=== PATIENT | male | born 1970 | race Caucasian/White ===

== ENCOUNTER 2020-11-09 17:36 | Inpatient (IN) | payer BC, OTHER ==
[~2020-11-09] VITALS: Ht 182.9 cm; Wt 116.0 kg
[2020-11-09 20:00] VITALS: BP 130/81
--- OUTSIDE RECORDS SUMMARY | 2020-11-09 20:23 | CCD ---
Author Author [facility] Organization [facility] Address Unknown Phone Unavailable Care Team Providers Care Fire Alarm Repairer Name Role Phone Amari, M Eliana PA-C Unavailable Unavailable Amari, M Eliana PA-C Unavailable Unavailable Amari, M Eliana PA-C Unavailable Unavailable Amari, M Eliana PA-C Unavailable Unavailable Amari, M Eliana PA-C Unavailable Unavailable Amari, M Eliana PA-C Unavailable Unavailable Amari, M Eliana PA-C Unavailable Unavailable Amari, M Eliana PA-C Unavailable Unavailable Amari, M Eliana PA-C Unavailable Unavailable Amari, M Eliana PA-C Unavailable Unavailable Amari, M Eliana PA-C Unavailable Unavailable Amari, M Eliana PA-C Unavailable Unavailable Amari, M Eliana PA-C Unavailable Unavailable Amari, M Eliana PA-C Unavailable Unavailable Amari, M Eliana PA-C Unavailable Unavailable Amari, M Eliana PA-C Unavailable Unavailable Amari, M Eliana PA-C Unavailable Unavailable Amari, M Eliana PA-C Unavailable Unavailable Amari, M Eliana PA-C Unavailable Unavailable Amari, M Eliana PA-C Unavailable Unavailable Amari, M Eliana PA-C Unavailable Unavailable Amari, M Eliana PA-C Unavailable Unavailable Amari, M Eliana PA-C Unavailable Unavailable Niles SANTANA PA Unavailable Unavailable Niles SANTANA PA Unavailable Unavailable Niles SANTANA PA Unavailable Unavailable Niles SANTANA PA Unavailable Unavailable Niles SANTANA PA Unavailable Unavailable Niles SANTANA PA Unavailable Unavailable Niles SANTANA PA Unavailable Unavailable ESTHER, L USMAN PA Unavailable Unavailable ESTHER, L USMAN PA Unavailable Unavailable ESTHER, L USMAN PA Unavailable Unavailable ESTHER, L USMAN PA Unavailable Unavailable ESTHER, L USMAN PA Unavailable Unavailable ESTHER, L USMAN PA Unavailable Unavailable ESTHER, L USMAN PA Unavailable Unavailable ESTHER, L USMAN PA Unavailable Unavailable ESTHER, L USMAN PA Unavailable Unavailable ESTHER, L USMAN PA Unavailable Unavailable ESTHER, L USMAN PA Unavailable Unavailable ESTHER, L USMAN PA Unavailable Unavailable MURALI, @ BRENDA CHRISTOPHER Unavailable Unavailable Jaylen CARRION MD Unavailable Unavailable Jaylen CARRION MD Unavailable Unavailable Jaylen CARRION MD Unavailable Unavailable Jaylen CARRION MD Unavailable Unavailable Jaylen CARRION MD Unavailable Unavailable Jaylen CARRION MD Unavailable Unavailable Jaylen CARRION MD Unavailable Unavailable Jaylen CARRION MD Unavailable Unavailable Jaylen CARRION MD Unavailable Unavailable Jaylen CARRION MD Unavailable Unavailable Jaylen CARRION MD Unavailable Unavailable Jaylen CARRION MD Unavailable Unavailable Jaylen CARRION MD Unavailable Unavailable Jaylen CARRION MD Unavailable Unavailable Jaylen CARRION MD Unavailable Unavailable Jaylen CARRION MD Unavailable Unavailable Jaylen CARRION MD Unavailable Unavailable Jaylen CARRION MD Unavailable Unavailable Jaylen CARRION MD Unavailable Unavailable Jaylen CARRION MD Unavailable Unavailable Jaylen CARRION MD Unavailable Unavailable TINA, SAGE DENISHA PA Unavailable Unavailable TINA, SAGE DENISHA PA Unavailable Unavailable TINA, SAGE DENISHA PA Unavailable Unavailable TINA, SAGE DENISHA PA Unavailable Unavailable TINA, SAGE DENISHA PA Unavailable Unavailable TINA, SAGE DENISHA PA Unavailable Unavailable TINA, SAGE DENISHA PA Unavailable Unavailable TINA, SAGE DENISHA PA Unavailable Unavailable TINA, SAGE DENISHA PA Unavailable Unavailable TINA, SAGE DENISHA PA Unavailable Unavailable TINA, SAGE DENISHA PA Unavailable Unavailable TINA, SAGE DENISHA PA Unavailable Unavailable TINA, SAGE DENISHA PA Unavailable Unavailable TINA, SAGE DENISHA PA Unavailable Unavailable TINA, SAGE DENISHA PA Unavailable Unavailable TINA, SAGE DENISHA PA Unavailable Unavailable TINA, SAGE DENISHA PA Unavailable Unavailable TINA, SAGE DENISHA PA Unavailable Unavailable TINA, SAGE DENISHA PA Unavailable Unavailable SAGE WILDER Unavailable Unavailable SAGE WILDER Unavailable Unavailable Re-disclosure Warning The records that you are about to access may contain information from federally-assisted alcohol or drug abuse programs. If such information is present, then the following federally mandated warning applies: This information has been disclosed to you from records protected by federal confidentiality rules (42 CFR part 2). The federal rules prohibit you from making any further disclosure of this information unless further disclosure is expressly permitted by the written consent of the person to whom it pertains or as otherwise permitted by 42 CFR part 2. A general authorization for the release of medical or other information is NOT sufficient for this purpose. The Federal rules restrict any use of the information to criminally investigate or prosecute any alcohol or drug abuse patient.The records that you are about to access may contain highly sensitive health information, the redisclosure of which is protected by Article 27-F of the [facility] Public Health law. If you continue you may have access to information: Regarding HIV / AIDS; Provided by facilities licensed or operated by the [facility] Office of Mental Health; or Provided by the [facility] Office for People With Developmental Disabilities. If such information is present, then the following [facility] mandated warning applies: This information has been disclosed to you from confidential records which are protected by state law. State law prohibits you from making any further disclosure of this information without the specific written consent of the person to whom it pertains, or as otherwise permitted by law. Any unauthorized further disclosure in violation of state law may result in a fine or fci sentence or both. A general authorization for the release of medical or other information is NOT sufficient authorization for further disc losure. Encounters Encounter Providers Location Date Indications Data Source(s ) Emergency Attender: USMAN LOPES EMERGENCY ROOM-EMERG ENCY ROOM 11/09/2020 01:17:00 PM EST - 11/09/2020 01:17:00 PM EST [facility] Outpatient Attender: ZAKIYA CARRION MD 12/15/2019 01:0 0:00 PM [facility] Outpatient Attender: ZAKIYA CARRION 12/10/2019 03:09:0 0 PM [facility] C ENTER 12/09/2019 12:00:00 AM EDT eCW1 ([facility]) Outpatient Attender: Eliana Fitzpatrick PA-C EMERGENCY ROOM-LA B 12/04/2019 08:08:00 AM EST - 12/04/2019 08:08:00 AM [facility] Outpatient Attender: Eliana Fitzpatrick PA-C 12/04/2019 07:03 :00 AM [facility] ENTER 12/04/2019 12:00:00 AM EST eCW1 ([facility]) Emergency Attender: DENISHA LOPES EMERGENCY ROOM-ER 03/30/2019 08:53:00 AM EDT - 03/30/2019 10:54:00 AM EDT [facility] Medications Medication Brand Name Start Date Product Form Dose Route Admi nistrative Instructions Pharmacy Instructions Status Indications Reaction Description Data Source(s) 875-125 mg 12/16/2019 12:00:00 AM EDT tablet 20 TAKE 1 TABLET BY MOUTH EVERY 12 HOURS TAKE 1 TABLET BY MOUTH EVERY 12 HOURS SOLD: 12/16/2019 [facility] Insurance Providers Payer name Policy type / Coverage type Policy ID Covered republican ID Covered republican's relationship to castro Policy [place] Plan Information [employer] PPO 302/307 [id number] SP [id number] UNITED HEALTHCARE [id number] SP [id number] SELF PAY ONLY [id number] SP [id number] STATE INSURANCE FUND [id number] SP [id number] UNITED HEALTHCARE [id number] S [id number] BCBS EMPIRE [id number] S [id number] UNITED HEALTHCARE [id number] S [id number] BCBS EMPIRE [id number] S [id number] UNITED HEALTHCARE [id number] S [id number] BCBS EMPIRE [id number] S [id number] UNITED HEALTHCARE [id number] S [id number] BCBS EMPIRE [id number] S [id number] BCBS EMPIRE ELINA DIV [id number] SP [id number] Problems, Conditions, and Diagnoses Code Display Name Description Problem Type Effective Dates Data Source(s) R22.2 Localized swelling, mass and lump, trunk LOCALIZED SWELLING, MASS AND LUMP, TRUNK Diagnosis [facility]92 Pilonidal sinus without abscess PILONIDAL SINUS WITHOUT ABSCESS Diagnosis 12/10/2019 03:09:00 PM [facility] Z13.220 Encounter for screening for lipoid disor ders ENCOUNTER FOR SCREENING FOR LIPOID DISOR Diagnosis 12/04/2019 08:08[facility] M53.3 Sacrococcygeal disorders, not elsewhere classified SACROCOCCYGEAL DISORDERS, NOT ELSEWHERE Diagnosis 12/04/2019 08:08:00 AM [facility] Z13.29 Encounter for screening for other suspec marycruz endocrine disorder ENCOUNTER FOR SCREENING FOR OTH SUSPECTED ENDOCRINE DISORDER Diagnosis 02/2020 08:08:00 AM [facility] Z71.6 Tobacco abuse counseling TOBACCO ABUSE COUNSELING Diag nosis 12/04/2019 07:03:00 AM [facility] Z72.0 Tobacco use TOBACCO USE Diagnosis 12/04/2019 07:03:00 AM [facility] Z28.21 Immunization not carried out because of patient refusal IMMUNIZATION NOT CARRIED OUT BECAUSE OF PATIENT RE Diagnosis 12/04/2019 07:03:00 AM [facility] Z76.89 Persons encountering health services in other specified circumstances PERSONS ENCOUNTERING HEALTH SERVICES IN OTH CIRCUMSTANCES Diagnosis 12/04/2019 07:03:00 AM [facility] Results ID Date Data Source [id number] 11/09/2020 04:41:00 [facility] TSYS[facility] [id number] Name Value Range Interpretation Code Description Data Corinne rce(s) Supporting Document(s) COVID-19 NEGATIVE NEGATIVE [facility] Negative results should be treated as pr esumptive and, ifinconsistent with clinical signs and symptoms or necessaryfor patient management, should be tested with differentauthorized or cleared molecular tests.Negative results do not preclude SARS-CoV-2 infection andshould not be used as the sole basis for patient managementdecisions.This is a rapid molecular in vitro diagnostic test utilizingan isothermal nucleic acid amplification technology intendedfor the qualitative detection of nucleic acid from the SARS-CoV-2 viral RNA in direct nasal, nasopharyngeal orthroat swabs from individuals who are suspected of COVID-19.Results are for the indentification of SARS-CoV-2 RNA. [id number] RNA is generally detectable in respiratorysamples during the actue phase of infection. ID Date Data Source [id number] 11/09/2020 03:38:00 PM EST [facility] DATE OF EXAMINATION: 11/09/2020 13:16 EST ABD/PEL WITH IV CONTRAST HISTORY: Abdominal pain. Left lower quadrant pain. TECHNIQUE: This CT exam was performed using the following dose reduction techniques:automated exposure control, adjustment of mA and/or kV according to thepatient's size, and use of iterative reconstruction technique. Standard contiguous axial spiral imaging was obtained from the dome of thediaphragms through the symphysis pubis without oral contrast and withintravenous contrast administration and with coronal reformatting. FINDINGS: Lower thorax: Unremarkable ABDOMEN: Liver: Moderate fatty infiltrationGallbladder and bile ducts: UnremarkablePancreas: UnremarkableSpleen: UnremarkableAdrenals: UnremarkableKidneys and ureters: 9.5 cm of hepatic cyst in the inferior pole of left kidneyStomach and bowel: Extensive focal inflammatory changes of mid to distaldescending colon consistent with colitis or diverticulitis. I do encouragecolonoscopy once the patient's current presentation subsidesAppendix: Normal PELVIS: Bladder: Partially opacified, grossly unremarkableReproductive: Unremarkable No free fluid or free air IMPRESSION: Moderate to severe focal inflammatory change involving the mid to distaldescending colon most consistent with acute diverticulitis with a smallloculated posterior microperforation. Colitis is less likely as is neoplasm.However, I do still encouraged colonoscopy once the patient's currentpresentation subsides. 9.5 cm exophytic cyst inferior pole of left kidney. Electronically signed in [id number] by: Terrie Pierre M.D. 11/09/2020 15:32 EST Name Value Range Interpretation Code Description Data Corinne rce(s) Supporting Document(s) ID Date Data Source [id number] 11/09/2020 01:37:00 PM EST [facility] TSYSORDER [id number] Name Value Range Interpretation Code Description Data Corinne rce(s) Supporting Document(s) LIPASE 157 U/L 73-393 [facility] ID Date Data Source [id number] 11/09/2020 01:37:00 PM EST [facility] TSYSORDER [id number] Name Value Range Interpretation Code Description Data Corinne rce(s) Supporting Document(s) GLUCOSE 104 mg/dL 74-106 [facility] BLOOD UREA NITROGEN 18 mg/dL 7-18 [facility] ital CREATININE 1.01 mg/dL 0.7-1.3 [facility] SODIUM 139 mmol/L 136-145 [facility] POTASSIUM 4.3 mmol/L 3.5-5.1 [facility] CHLORIDE 103 mmol/L 98-107 [facility] CO2 29 mmol/L 21-32 [facility] CALCIUM 9.6 mg/dL 8.5-10.1 [facility] ANION GAP 7.0 mmol/L 5-12 [facility] GLOMERULAR FILTRATION RATE 79 mL/min [facility] GFR IS CALCULATED IN mL/min/1.73m2 CRYSTAL L FUNCTION: >90MILDLY DECREASED: 60-89MILDY TO MODERATELY DECREASED: 45-59 MODERATELY TO SEVERELY DECREASED: 30-44SEVERELY DECREASED: 15-29RENAL FAILURE: <15 AST 18 U/L 15-37 [facility] ALT 46 U/L 12-78 [facility] ALKALINE PHOSPHATASE 61 U/L 46-116 [facility] pital TOTAL BILIRUBIN 0.4 mg/dL 0.2-1.0 [facility] TOTAL PROTEIN 7.8 g/dl 6.4-8.2 [facility] ALBUMIN 3.9 gm/dL 3.4-5.0 [facility] ID Date Data Source [id number] 11/09/2020 01:37:00 PM [facility] TSYSORDER [id number] Name Value Range Interpretation Code Description Data Corinne rce(s) Supporting Document(s) PARTIAL THROMBOPLASTIN TIME 27.3 SECONDS 21.2-27.3 [facility] ID Date Data Source [id number] 11/09/2020 01:37:00 PM [facility] l TSYSORDER [id number] Name Value Range Interpretation Code Description Data Corinne rce(s) Supporting Document(s) MAGNESIUM 2.1 mg/dL 1.8-2.4 [facility] ID Date Data Source [id number] 11/09/2020 01:37:00 PM [facility] l TSYSORDER [id number] Name Value Range Interpretation Code Description Data Corinne rce(s) Supporting Document(s) PROTHROMBIN TIME (PATIENT) 10.0 SECONDS 9.1-11.6 [facility] INR 0.96 0.87-1.06 [facility] ID Date Data Source [id number] 11/09/2020 01:19:00 PM EST [facility] TSYSORDER [id number] Name Value Range Interpretation Code Description Data Corinne rce(s) Supporting Document(s) WHITE BLOOD COUNT 11.2 K/mm3 4.0-10.0 [facility] RED [facility]LOOD COUNT 5.38 M/mm3 4.50-6.00 [facility] l HEMOGLOBIN 16.2 gm/dL 14.0-18.0 [facility] HEMATOCRIT 47.0 % 42.0-54.0 [facility] MEAN CELL VOLUME 87.4 fl 80-96 [facility] MEAN CORPUSCULAR HEMOGLOBIN 30.1 pg 27.0-31.0 [facility] MEAN CORPUSCULAR HGB CONC 34.5 g/dl 32.0-36.0 [facility] RED CELL DISTRIBUTION WIDTH 11.3 % 10.0-14.5 [facility] PLATELET COUNT 189 K/mm3 172-450 [facility] MEAN PLATELET VOLUME 10.4 fl 9.0-13.0 [facility] pital GRAN % 74.6 % 50-80.0 [facility] IG% 0.1 % 0.0-0.2 [facility] LYMPH % 15.2 % 25.0-50.0 L [facility] MONO % 7.8 % 2.0-10.0 [facility] EOS % 2.0 % 0-5.0 [facility] BASO % 0.3 % 0.0-2.0 [facility] GRAN # 8.4 K/mm3 2.0-8.00 H [facility] IG# 0.0 K/mm3 0.0-0.2 [facility] LYMPH # 1.7 K/mm3 1.0-5.0 [facility] MONO # 0.9 K/mm3 0.10-1.20 [facility] EOS # 0.2 K/mm3 0.0-0.5 [facility] BASO # 0.0 K/mm3 0.0-0.2 [facility] ID Date Data Source [id number] 11/09/2020 01:12:00 PM [facility] TSYSORDER [id number] Name Value Range Interpretation Code Description Data Corinne rce(s) Supporting Document(s) URINE COLOR. [facility] URINE APPEARANCE CLEAR [facility] l URINE GLUCOSE (UA) NEGATIVE mg/dL NEGATIVE [facility] URINE BILIRUBIN NEGATIVE NEGATIVE [facility] URINE KETONE NEGATIVE mg/dL [facility]IVE [facility]CIFIC GRAV[facility],URINE >= 1.030 1.001-1.035 [facility] URINE BLOOD NEGATIVE NEGATIVE [facility] PH,URINE 5.0 5.0-9.0 [facility] URINE PROTEIN NEGATIVE mg/dL NEGATIVE [facility] UROBILINOGEN NORMAL(0.2-1) mg/dL 0-1 [facility] URINE NITRATE NEGATIVE NEGATIVE [facility] URINE LEUKOCYTE ESTERASE NEGATIVE NEGATIVE [facility] ID Date Data Source [id number] 12/15/2019 01:33:00 PM EDT [facility] DATE OF EXAMINATION: 12/15/2019 12:53 EDT EXTREMITY LIMITED HISTORY: Bilateral cysts ULTRASOUND lower back Real-time ultrasound imaging was performed utilizing B-mode/lund scale and colorDoppler imaging where applicable. FINDINGS: There is an ill-defined hypoechoic area measuring roughly 1 x 0.5 cm which maybe secondary to cellulitis. There is no definite fluid collection. IMPRESSION: Findings suggestive of focal cellulitis. Electronically signed in [id number] by: Terrie Pierre M.D. 12/15/2019 13:28 EDT Name Value Range Interpretation Code Description Data [facility] Supporting Document(s) ID Date Data Source [id number] 12/04/2019 09:07:00 AM EST [facility] DATE OF EXAMINATION: 12/04/2019 8:32 EST T ECHNIQUE: 3 views of the sacrum coccyx were obtained. HISTORY: Pain There is normal alignment and position of the bones of the sacrum and coccyx. Noevidence for fracture or any other abnormalities can be noted. IMPRESSION: Unremarkable sacrum and coccyx exam. Electronically signed in [id number] by: Terrie Pierre M.D. 12/04/2019 9:01 EST Name Value Range Interpretation Code Description Data [facility] rce(s) Supporting Document(s) ID Date Data Source [id number] 12/04/2019 10:02:00 AM EST [facility] Name Value Range Interpretation Code Description Data [facility] rce(s) Supporting Document(s) ESTIMATED AVERAGE GLUCOSE 102.5 mg/dL [facility] ID Date Data Source [id number] 12/04/2019 10:02:00 AM EST [facility] Name Value Range Interpretation Code Description Data Corinne rce(s) Supporting Document(s) HGBA1C 5.2 % 4.5-6.2 [facility] ID Date Data Source [id number] 12/04/2019 09:08:00 AM [facility] Name Value Range Interpretation Code Description Data Corinne rce(s) Supporting Document(s) FREE T4 1.00 ng/dL 0.76-1.46 [facility] ID Date Data Source [id number] 12/04/2019 09:08:00 AM EST [facility] Name Value Range Interpretation Code Description Data Corinne rce(s) Supporting Document(s) TSH 1.10 uIU/mL 0.36-3.74 [facility] ID Date Data Source [id number] 12/04/2019 09:05:00 AM [facility] Name Value Range Interpretation Code Description Data Corinne rce(s) Supporting Document(s) GLUCOSE 87 mg/dL 74-106 [facility] BLOOD UREA NITROGEN 14 mg/dL 7-18 [facility] ital CREATININE 0.9 mg/dL 0.7-1.3 [facility] SODIUM 146 mmol/L 136-145 H [facility] POTASSIUM 4.4 mmol/L 3.5-5.1 [facility] CHLORIDE 107 mmol/L 98-107 [facility] CO2 24 mmol/L 21-32 [facility] CALCIUM 9.0 mg/dL 8.5-10.1 [facility] ANION GAP 15.0 mmol/L 5-12 H [facility] GLOMERULAR FILTRATION RATE 90 mL/min [facility] GFR IS CALCULATED IN mL/min/1.73m2 CRYSTAL L FUNCTION: >90MILDLY DECREASED: 60-89MILDY TO MODERATELY DECREASED: 45-59 MODERATELY TO SEVERELY DECREASED: 30-44SEVERELY DECREASED: 15-29RENAL FAILURE: <15 AST 17 U/L 15-37 [facility] ALT 40 U/L 12-78 [facility] ALKALINE PHOSPHATASE 61 U/L 46-116 [facility] pital TOTAL BILIRUBIN 0.2 mg/dL 0.2-1.0 [facility] TOTAL PROTEIN 7.3 g/dl 6.4-8.2 [facility] ALBUMIN 4.4 gm/dL 3.4-5.0 [facility] ID Date Data Source [id number] 12/04/2019 09:05:00 AM EST [facility] Name Value Range Interpretation Code Description Data Corinne rce(s) Supporting Document(s) CHOLESTEROL 155 mg/dL 0-200 [facility] TRIGLYCERIDES 222 mg/dL 0-150 H [facility] LDL CHOLESTEROL 73 mg/dL 0-100 [facility] HDL CHOLESTEROL 38 mg/dL 40-60 L [facility] CHOL/HDL RATIO 4.1 0.0-5.0 [facility] ID Date Data Source [id number] 12/04/2019 08:47:00 AM [facility] l Name Value Range Interpretation Code Description Data Corinne rce(s) Supporting Document(s) WHITE BLOOD COUNT 5.6 K/mm3 4.0-10.0 [facility] al RED BLOOD COUNT 5.00 M/mm3 4.50-6.00 [facility] HEMOGLOBIN 15.6 gm/dL 14.0-18.0 [facility] HEMATOCRIT 45.3 % 42.0-54.0 [facility] MEAN CELL VOLUME 90.6 fl 80-96 [facility] MEAN CORPUSCULAR HEMOGLOBIN 31.2 pg 27.0-31.0 H [facility] MEAN CORPUSCULAR HGB CONC 34.4 g/dl 32.0-36.0 [facility] RED CELL DISTRIBUTION WIDTH 11.5 % 10.0-14.5 [facility] PLATELET COUNT 183 K/mm3 172-450 [facility] Procedure Vital Signs ID Date Data Source UNK Name Value Range Interpretation Code Description Data Source(s) Deprecated Oxygen saturation in Capillary blood by Oximetry 98 % 98 % eCW1 ([facility]) Respiratory rate 18 /min 18 /min eCW1 ([facility]) Heart rate 92 /min 92 /min eCW1 ([facility]) Body temperature 98.5 [degF] 98.5 [degF] eCW1 ( [facility]) Body weight Measured 226.2 [lb_av] 226.2 [lb_av ] eCW1 ([facility])
[2020-11-09] MEDS ORDERED: KETOROLAC 30 MG/ML 1ML VIAL IV PRN (20:30)
[2020-11-09] MEDS ORDERED: ONDANSETRON 4MG/2ML VIAL IV PRN (20:30)
[2020-11-09] MEDS ORDERED: MORPHINE 2 MG/ML 1ML VIAL (J2270) IV PRN (20:30)
[2020-11-09] MEDS: LR 1,000 ML IV SCH (21:12)
[2020-11-09] MEDS: ACETAMINOPHEN TAB 650MG DOSE (2X325MG) PO PRN (21:12)
[2020-11-09] MEDS ORDERED: NORCO, ANEXSIA 5/325MG TABLET (HYDROcodone/ACETAMINOPHEN) PO PRN (21:45)
[2020-11-09] MEDS ORDERED: IBUPROFEN 600MG TAB PO PRN (21:45)
[2020-11-09] MEDS: PIPERACILLIN/TAZOBACTAM SOD 3.375 GM in D5W MINI-BAG PLUS 50 ML IV SCH (22:55)
--- NOTE | 2020-11-09 23:03 | HPE ---
HISTORY AND PHYSICAL DATE OF ADMISSION: 11/09/2020 ADMITTING DIAGNOSIS: Acute descending colon diverticulitis with contained perforation. HISTORY OF PRESENT ILLNESS: The patient is a generally healthy 50-year-old man who awakened on the morning of Saturday the october and noted some pain in the left flank area. This was initially fairly mild and did not interfere with his going to work and working through the day on Saturday, the . As time progressed, it became somewhat more painful and by the morning of the october, he noted that the discussed in that area was severe. This was acutely aggravated by any motion or activity, and he did not feel well enough to go to work. He presented at [facility] in [place] for evaluation at 11:30 in the morning by his recollection. He underwent an evaluation with some lab work, physical exam and imaging. He was found to have a short segment of the mid descending colon that was acutely inflamed with a small pocket of air posterior to this, consistent with acute diverticulitis with a focal contained perforation. He was also noted to have a large cyst at the inferior pole of the left kidney. The patient received IV Ciprofloxacin and Flagyl at [facility]. I was subsequently contacted and accepted the patient in transfer for surgical evaluation and further treatment. The patient is now admitted for antibiotic management and close observation of his focal perforation. MEDICATIONS: None. ALLERGIES: None. PAST SURGICAL HISTORY: The patient's past surgical history is negative. He thinks he may have had his tonsils out when he was a small child. PAST MEDICAL HISTORY: The patient denies any active medical issues. SOCIAL HISTORY: The patient is . 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 He does drink alcohol occasionally. He smokes approximately a pack or less of cigarettes daily. FAMILY HISTORY: He believes he has an uncle who had colon cancer and his brother apparently has had some diverticulosis. REVIEW OF SYSTEMS: The patient's review of systems reveals no history of chest pain or palpitations or any cardiac issues. He denies any cough, wheezing or sputum production. He has had no dysuria or hematuria. He has had no melena or hematochezia. He denies any history of chronic diarrhea or constipation. He reports having had two bowel movements that were normal but small this morning. There is no history of significant bone or joint issues. He has no history of DVT or pulmonary embolus. There is no history of seizures, stroke or severe headaches. PHYSICAL EXAMINATION: GENERAL APPEARANCE: The patient is examined lying in the hospital bed after transfer. He is alert and oriented. He appears comfortable at rest but does note significant pain in his left flank with any movement. SKIN: Warm and dry. HEENT: Sclerae are anicteric. Mucous membranes are moist. NECK: Supple without apparent mass. He has palpable radial pulses bilaterally. HEART: Regular rate and rhythm. There is no murmur. LUNGS: Clear to auscultation bilaterally. ABDOMEN: Mildly protuberant and perhaps mildly obese. He has some soft bowel sounds present. There is no tympani to percussion. On the right side there is no tenderness to percussion. The abdomen is soft on the right but there is some referred tenderness on palpation of the right side of the abdomen on the left at about the level of the umbilicus. Palpation on the left side of the abdomen reveals marked tenderness in the flank area at the level of the umbilicus. He has definite focal rebound tenderness. There is no sign of abdominal wall hernia and no scar. EXTREMITIES: No peripheral edema. He has palpable dorsalis pedis pulses bilaterally. LABORATORY STUDIES: Laboratory studies done at [facility] included a CBC with a diff showing a white count of 11, hemoglobin 16, hematocrit 47 and a platelet count of 189,000. The differential showed 75% neutrophils, 15% lymphocytes and 8% monocytes. PT, PTT and INR were normal. Chemistry profile showed normal electrolytes with a BUN of 18, creatinine 1 and a glucose of 104. His liver function tests were all normal as were his lipase and magnesium. He had a urinalysis that was normal. He had a COVID test that was negative. He had a CT scan of the abdomen and pelvis done at [facility] that was interpreted as showing a 9.5 cm cyst in the inferior pole of the left kidney. The radiologist described extensive focal inflammatory changes at the mid to distal descending colon, consistent with colitis or diverticulitis. He indicated that there was evidence for a small loculated posterior microperforation. I reviewed the imaging on a disk and would agree that there appears to be a small air pocket with marked inflammation outside the wall of the colon posteriorly but contained within the soft tissues surrounding the colon. IMPRESSION: 1. Acute descending colon diverticulitis with focal contained perforation. 2. Tobacco use. PLAN: The patient was counseled regarding the nature of diverticulosis and diverticulitis. I advised him that it is most likely that his perforation will remain contained and that he will improve with antibiotics alone. I did probation counselor him that there is a chance that the perforation could progress to a local abscess or even a free perforation into the abdomen which would require much more extensive treatment. 1. I will start him on some clear liquids and see how he tolerates these. 2. I will place him on Zosyn for antibiotic coverage. 3. He will receive some IV fluids initially and once it is clear that he is tolerating liquids well enough, I will stop these. 4. I will recheck a CBC in the morning to see how this compares to his initial study at [facility]. 5. He will be provided with analgesics as necessary.
[2020-11-10 02:00] VITALS: BP 131/78
[2020-11-10] MEDS: LR 1,000 ML IV SCH ×2 (04:53→16:03)
[2020-11-10] MEDS: PIPERACILLIN/TAZOBACTAM SOD 3.375 GM in D5W MINI-BAG PLUS 50 ML IV SCH ×4 (04:53→22:07)
[2020-11-10] MEDS: ACETAMINOPHEN TAB 650MG DOSE (2X325MG) PO PRN ×2 (04:57→18:41)
[2020-11-10 06:00] VITALS: BP 130/78
[2020-11-10 07:57] LABS: BASO % 0.4 % (0.0-1.0); EOS # 0.2 10^3/uL (0.0-0.5); EOS % 2.1 % (0.0-3.0); HEMATOCRIT 43.2 % (42.0-52.0); HEMOGLOBIN 14.9 g/dl (13.5-17.5); LYMPH % 17.5 % (24.0-44.0); MEAN CORPUSCULAR HEMOGLOBIN 30.8 pg (27.0-33.0); MEAN CORPUSCULAR HGB CONC 34.5 g/dl (32.0-36.5); MEAN CORPUSCULAR VOLUME 89.3 fl (80.0-96.0); MONO # 1.1 10^3/uL (0.0-0.8); MONO % 9.8 % (0.0-5.0); NEUTROPHILS # 7.8 10^3/uL (1.5-8.5); NEUTROPHILS % 69.8 % (36.0-66.0); PLATELET COUNT, AUTOMATED 183 10^3/uL (150-450); RED BLOOD COUNT 4.84 10^6/uL (4.30-6.10)
[2020-11-10 08:03] LABS: WHITE BLOOD COUNT 11.2 10^3/uL (4.0-10.0)
[2020-11-10 10:00] VITALS: BP 129/79
--- NOTE | 2020-11-10 11:40 | IPNPDOC ---
Text Note Date of Service The patient was seen on 11/10/20. NOTE General Surgery Dr Metz. The patient is a 50-year-old male admitted with acute descending colon diverticulitis with contained perforation 11/09/20. The patient states he is still having left-sided abdominal discomfort, but states it is not as severe as yesterday. He has only used Tylenol for pain. States abdominal distention is less than yesterday, reports flatus, no BM. States he is tolerating clear liquids, no nausea or vomiting. afebrile, Tmax 99.2 Heart rate 65, respiratory rate 17, blood pressure 129/79, 96% room air Resting in bed comfortably, reports left-sided abdominal pain with movement. MMM Lungs are clear to auscultation S1-S2 regular rate and rhythm, no murmur Abdomen is protuberant, bowel sounds hypoactive, tenderness with palpation at the left mid and left lower quadrant areas, with guarding. Extremities. Well-perfused, no edema. 1030, 655po/0. +1030. WBC 11.2, labs at [facility] yesterday 11.0 Hemoglobin 14.9 Platelet 183 A/P. Acute descending colon diverticulitis with focal contained perforation. Afebrile. WBC this morning is 11.2, this is essentially unchanged from 11.0 yesterday at [facility]. Continue Clear liquids IVF 125cc/hr Continue IV Zosyn. CBC in AM. Monitor. VS,Fishbone, I+O VS, Fishbone, I+O Laboratory Tests 11/10/20 07:33 Vital Signs Date Time Temp Pulse Resp B/P (MAP) Pulse Ox O2 Delivery O2 Flow Rate FiO2 11/10/20 10:00 98.6 65 17 129/79 (96) 96 Room Air I&O- Last 24 Hours up to 6 AM 11/10/20 06:00 Intake Total 1385 ml Output Total 875 ml Balance 510 ml Attending Note Attending Note Agree with note by Starr Mccoy. Pt admitted last night. Has tolerated clears well. Reports pain less with movement. Exam reveals pt still moderately to markedly tender left flank. Does seem somewhat less. WBC not really changed. Will advance to full liquids. If significantly improved in am may be able to DC on po abx. Starr Mccoy Nov 10, 2020 11:00 Kwame Metz Nov 10, 2020 22:26
[2020-11-10 14:00] VITALS: BP 129/80
[2020-11-10 18:00] VITALS: BP 128/82
[2020-11-10 22:00] VITALS: BP 126/82
[2020-11-11 02:00] VITALS: BP 117/71
[2020-11-11] MEDS: PIPERACILLIN/TAZOBACTAM SOD 3.375 GM in D5W MINI-BAG PLUS 50 ML IV SCH (04:25)
[2020-11-11 06:00] VITALS: BP 121/73
[2020-11-11 06:55] LABS: BASO % 0.6 % (0.0-1.0); EOS # 0.3 10^3/uL (0.0-0.5); EOS % 3.7 % (0.0-3.0); HEMATOCRIT 44.4 % (42.0-52.0); HEMOGLOBIN 14.8 g/dl (13.5-17.5); LYMPH # 1.8 10^3/uL (1.5-5.0); LYMPH % 26.2 % (24.0-44.0); MEAN CORPUSCULAR HEMOGLOBIN 30.1 pg (27.0-33.0); MEAN CORPUSCULAR HGB CONC 33.3 g/dl (32.0-36.5); MEAN CORPUSCULAR VOLUME 90.2 fl (80.0-96.0); MONO # 0.8 10^3/uL (0.0-0.8); MONO % 11.8 % (0.0-5.0); NEUTROPHILS # 3.9 10^3/uL (1.5-8.5); NEUTROPHILS % 57.4 % (36.0-66.0); PLATELET COUNT, AUTOMATED 168 10^3/uL (150-450); RED BLOOD COUNT 4.92 10^6/uL (4.30-6.10); WHITE BLOOD COUNT 6.7 10^3/uL (4.0-10.0)
[2020-11-11] MEDS ORDERED: CIPR-249 PO (09:26)
[2020-11-11] MEDS ORDERED: FLAG500T PO (09:26)
[2020-11-11 10:00] VITALS: BP 120/74
--- NOTE | 2020-11-11 10:43 | DS.PDOC ---
Discharge Summary General Date of Admission Nov 09, 2020 at 20:00 Date of Discharge 11/11/20 Attending Physician: Kwame Metz Discharge Summary PROCEDURES PERFORMED DURING STAY: None. ADMITTING DIAGNOSES: Acute descending colon diverticulitis with contained perforation. Diverticulosis Left renal cyst DISCHARGE DIAGNOSES: Acute descending colon diverticulitis with contained perforation. Diverticulosis Left renal cyst COMPLICATIONS/CHIEF COMPLAINT: Perforated Diverticulitis. HISTORY OF PRESENT ILLNESS: The patient is a 50-year-old male who awakened on the morning 11/08/20 and noted some pain in the left flank area. This was initially fairly mild and did not interfere with his going to work and working through the day. As time progressed, it became somewhat more painful and by 11/09/19 he reported it became severe. This was acutely aggravated by any motion or activity, and he did not feel well enough to go to work. He presented at [facility] in [place] and underwent an evaluation with imaging indicating short segment of the mid descending colon that was acutely inflamed with a small pocket of air posterior to this, consistent with acute diverticulitis with a focal contained perforation. He was also noted to have a large cyst at the inferior pole of the left kidney. The patient received IV Ciprofloxacin and Flagyl at [facility]. Dr. Metz was contacted and accepted the patient in transfer for surgical evaluation and further treatment. HOSPITAL COURSE: The patient's imaging was reviewed by on his arrival. There appeared to be a small air pocket with marked inflammation outside the wall of the colon posteriorly but contained within the soft tissues surrounding the colon. The patient was advised that it is most likely his perfo ration would remain contained in that he would improve with antibiotics alone. The patient was admitted for IV fluids and IV antibiotics with further monitoring. Patient was placed on IV Zosyn. Initially the patient was placed on clear liquids. By 11/10/20 the patient did report some improvement in his discomfort. WBC was noted to be 11.2. This was compared with 11.0 at [facility]. The patient was advanced to full liquids the evening of 11/10. This morning WBC 6.7, the patient states his abdominal pain is improving. No nausea or vomiting. He does report flatus, no BM yet. The patient is reviewed and examined by Dr. Metz, plan is for discharge today with course of outpatient oral Cipro/Flagyl and outpatient follow-up. The patient has been counseled that it is felt most likely perforation will remain contained and he will continue to improve with course of oral antibiotics. The patient is advised to notify the office or report to the emergency department with worsening symptoms, increasing pain, fevers or chills. DISCHARGE MEDICATIONS: Please see below. ALLERGIES: Please see below. PHYSICAL EXAMINATION ON DISCHARGE: VITAL SIGNS: Afebrile, heart rate 56, respiratory rate 17, blood pressure 121/73, 96% room air. Resting in bed comfortably, MMM Lungs are clear to auscultation S1-S2 regular rate and rhythm, no murmur Abdomen soft, the patient still has tenderness with palpation left lower quadrant area/flank area, but this is improved compared with yesterday. Extremities. Well-perfused, no edema. LABORATORY DATA: Follow-up CBC this morning indicated white blood cell count 6.7. This is decreased from 11.2. IMAGING: The patient had CT scan of the abdomen and pelvis done at [facility] that was interpreted as showing a 9.5 cm cyst in the inferior pole of the left kidney. The radiologist described extensive focal inflammatory changes at the mid to distal descending colon, consistent with colitis or diverticulitis. He indicated that there was evidence for a small loculated posterior microperforation. The patient's imaging was reviewed by Dr. Metz, there appeared to be a small air pocket with marked inflammation outside the wall of the colon posteriorly but contained within the soft tissues surrounding the colon. ACTIVITY: As tolerated. The patient is advised to remain off work the weekend. He is given a note stating he can resume to work Saturday11/14/20 with no restrictions. DIET: Soft diet as tolerated DISPOSITION: Discharge home DISCHARGE INSTRUCTIONS: The patient is advised to rest over the weekend. Light activity for the weekend and he may resume work on Saturday11/14/20 if he is continuing to feel better. Dr. Metz has discussed with the patient to monitor for fevers, chills or increasing abdominal pain. Cipro 500 mg by mouth twice a day 7 days Flagyl 500 mg by mouth every 8 hours 7 days Follow-up with Dr. Metz in 7-10 days in the office however the patient is aware to call the meantime with any worsening symptoms or concerns. DISCHARGE CONDITION: Stable. TIME SPENT ON DISCHARGE: Greater than 30 minutes. Vital Signs/I&Os Vital Signs Date Time Temp Pulse Resp B/P (MAP) Pulse Ox O2 Delivery O2 Flow Rate FiO2 11/11/20 06:00 98.3 56 17 121/73 (89) 96 Room Air I&O- Last 24 Hours up to 6 AM 11/11/20 06:00 Intake Total 3523 ml Output Total 3575 ml Balance -52 ml Laboratory Data Labs 24H Laboratory Tests 2 11/11/20 06:42: Immature Granulocyte % (Auto) 0.3, Neutrophils (%) (Auto) 57.4, Lymphocytes (%) (Auto) 26.2, Monocytes (%) (Auto) 11.8H, Eosinophils (%) (Auto) 3.7H, Basophils (%) (Auto) 0.6, Neutrophils # (Auto) 3.9, Lymphocytes # (Auto) 1.8, Monocytes # (Auto) 0.8, Eosinophils # (Auto) 0.3, Basophils # (Auto) 0.0, Nucleated Red Blood Cells % (auto) 0.0 CBC/BMP Laboratory Tests 11/11/20 06:42 Discharge Medications Scheduled Ciprofloxacin HCl (Cipro) 500 Mg Tablet, 1 TAB PO BID Metronidazole (Flagyl) 500 Mg Tablet, 500 MG PO Q8H FOR 7 DAYS Allergies Coded Allergies: No Known Allergies (Verified Allergy, Unknown, 11/09/20) Attending Note Attending Note Excellent summary by MOSES Mccoy. Patient seen this am with Starr. Feels better. No N/V. + flatus. Took fulls well. Exam: Tender only focally directly over the left flank. No referred tenderness on palpation on the right. Labs noted. Will DC home on Cipro/flagyl with instructions as noted. I anticipate continued resolution of symptoms with continued antibiotics. Starr Mccoy Nov 11, 2020 10:42 Kwame Metz Nov 11, 2020 17:06
== END 2020-11-11 11:04 | disposition home or self-care (01) | DRG 244 ==
LOC: M MSPAV 20:00
PROVIDERS: ADMIT Surgery; ATTEND Surgery
DX: K57.20 Diverticulitis of large intestine with perforation and abscess without bleeding (principal); N28.1 Cyst of kidney, acquired; F17.200 Nicotine dependence, unspecified, uncomplicated

== ENCOUNTER → 2025-06-29 | Outpatient (CLI) | payer BC ==
[~2025-06-29] MED LIST: CIPR-249 PO; FLAG500T PO
== END ==
LOC: M RAD 11:08
PROVIDERS: ATTEND Nurse Practitioner Family
DX: R22.0 Localized swelling, mass and lump, head (principal)